=== PATIENT | female | born 1985 ===

== ENCOUNTER 2022-07-04 17:46 | Emergency (ER) | payer OTHER ==
[~2022-07-04] VITALS: Ht 170.2 cm; Wt 133.8 kg
[2022-07-04] MEDS ORDERED: XARELTO1 EAC1 PO (19:48)
== END 2022-07-04 20:08 | disposition home or self-care (01) ==
LOC: ER 17:46
DX: I82.432 Acute embolism and thrombosis of left popliteal vein (principal); Z98.890 Other specified postprocedural states
CPT/HCPCS: 93971; 99283-25; A9270